=== PATIENT | male | born 2005 | race Hispanic/Latino ===

== ENCOUNTER 2024-08-01 11:50 | Observation (INO) | payer OTHER ==
[~2024-08-01] VITALS: Ht 162.6 cm; Wt 71.2 kg
[2024-08-01 12:07] VITALS: PULSE 63; RESP 15; TEMP 98.8
[2024-08-01 12:30] LABS: BASOPHILS % 0.3 % (0.0-1.0); EOSINOPHILS % 0.4 % (0.0-6.0); HEMATOCRIT 43.8 % (38.2-49.6); HEMOGLOBIN 14.7 g/dL (14.0-18.0); LYMPHOCYTES # (AUTO) 1.5 (1.0-3.2); LYMPHOCYTES % 21.6 % (18.0-39.1); MEAN CORPUSCULAR HEMOGLOBIN 30.3 pg (28-32); MEAN CORPUSCULAR HGB CONC 33.6 g/dL (31-35); MEAN CORPUSCULAR VOLUME 90.3 fL (81-99); MONOCYTES # (AUTO) 0.7 (0.2-0.8); MONOCYTES % 10.6 % (4.4-11.3); NEUTROPHILS # (AUTO) 4.6 (2.1-6.9); NEUTROPHILS % 66.7 % (38.7-80.0); PLATELET COUNT 279 x10e3/uL (140-360); RED BLOOD COUNT 4.85 x10e6/uL (4.3-5.7); WHITE BLOOD COUNT 6.91 x10e3/uL (4.8-10.8)
[2024-08-01] MEDS ORDERED: ONDANSETRON HCL INJ 2MG/ML 2ML 2 MG/ML VIAL IV PRN (12:45)
[2024-08-01 12:49] LABS: INR 1.02; PROTHROMBIN TIME 13.9 seconds (11.9-14.5)
[2024-08-01 12:50] LABS: PARTIAL THROMBOPLASTIN TIME 40.3 seconds (23.8-35.5)
[2024-08-01 12:56] LABS: ANION GAP 15.8 mmol/L (8-16); CALCIUM 9.3 mg/dL (8.4-10.2); CREATININE, SERUM 0.85 mg/dL (0.72-1.25); POTASSIUM 3.8 mmol/L (3.5-5.1)
[2024-08-01] MEDS: SODIUM CHLORIDE 0.9% 1000ML 1,000 ML IV SCH (13:06)
[2024-08-01] MEDS ORDERED: BUPIVACAINE 0.25% 30ML SDV ONE (13:34)
[2024-08-01] MEDS ORDERED: LIDOCAINE 1% W/EPINEPHRINE 20 ML VIAL ONE (13:34)
[2024-08-01 15:24] VITALS: BP 141/81; PULSE 67; RESP 17; O2SAT 100
== END 2024-08-01 15:40 | disposition home or self-care (01) ==
LOC: ER 12:03 → ERHOLD 12:34 → PACU V 13:32
PROVIDERS: ADMIT Surgery; ATTEND Surgery
DX: S51.811A Laceration without foreign body of right forearm, initial encounter (principal); W26.8XXA Contact with other sharp object(s), not elsewhere classified, initial encounter; Y92.89 Other specified places as the place of occurrence of the external cause; Y99.0 Civilian activity done for income or pay
CPT/HCPCS: 36415; 37799; 80048; 85025; 85610; 85730; 99284; G0378; J0696; J7030